=== PATIENT | male | born 1980 | race Caucasian/White ===

== ENCOUNTER → 2018-01-01 | Outpatient (CLI) | payer BC ==
[~2018-01-01] MED LIST: AZOR PO; HYDR-2768 PO; METO50; OMPR20CCR; SUCR1TAB; VITA100018 PO
[2018-01-02 16:48] LABS: APPEARANCE Normal; MOTILE/EJACULATE 16.1 x10(6) (>=9.0); MOTILE/mL 10.7 x10(6) (>=6.0); MOTILITY 55 % (>=40); SEMEN PH 8.5 (>=7.2); SEMEN VOLUME 1.5 mL (>=1.5); SPERM/ML 19.4 x10(6) (>=15.0); WBC/ML 9.51 x10(6) (<1.00)
== END ==
LOC: CLAB 10:05
PROVIDERS: ATTEND Urology
DX: N46.9 Male infertility, unspecified (principal)
CPT/HCPCS: 89322